=== PATIENT | female | born 1960 | race Two or more races ===

== ENCOUNTER 2023-07-25 18:20 | Emergency (ER) | payer MEDICARE, OTHER ==
[~2023-07-25] VITALS: Ht 149.9 cm; Wt 98.4 kg
[2023-07-25 18:32] VITALS: BP 138/81; TEMP 98.6; O2SAT 97
[2023-07-25] MEDS ORDERED: MORPHINE SULFATE INJ 4 MG/ML DISP.SYRIN ONE (18:58)
[2023-07-25] MEDS: MORPHINE SULFATE INJ 2 MG/ML DISP.SYRIN IV ONE (19:14)
[2023-07-25 19:36] LABS: EOSINOPHILS # (AUTO) 1.4 K/uL (0.0-0.7); EOSINOPHILS % (AUTO) 12.6 % (0.0-6.0); HEMATOCRIT 38 % (33-45); HEMOGLOBIN 11.8 g/dL (11.5-14.8); LYMPHOCYTES # (AUTO) 0.1 K/uL (0.8-4.8); LYMPHOCYTES % (AUTO) 1.2 % (20.0-44.0); MEAN CORPUSCULAR HEMOGLOBIN 24 PG (26.0-33.0); MEAN CORPUSCULAR HGB CONC 31 g/dl (31.0-36.0); MEAN CORPUSCULAR VOLUME 78 fL (82-100); MONOCYTES # (AUTO) 0.2 K/uL (0.1-1.30); MONOCYTES % (AUTO) 1.8 % (2.0-12.0); NEUTROPHILS # (AUTO) 9.7 K/uL (1.8-8.9); NEUTROPHILS % (AUTO) 84.4 % (43.0-81.0); PLATELET COUNT (AUTO) 317 K/uL (150-450); RED BLOOD CELL COUNT(AUTO) 4.83 MIL/uL (4.0-5.2); RED CELL DISTRIBUTION WIDTH 17.6 % (11.5-15.0); WHITE BLOOD COUNT (AUTO) 11.4 K/uL (4.3-11.0)
[2023-07-25 20:06] LABS: POTASSIUM 4.2 mmol/L (3.5-5.1)
[2023-07-25 20:12] LABS: INR 1.06 (0.91-1.10); PARTIAL THROMBOPLASTIN TIME 32.9 SEC (24.3-34.3); PROTHROMBIN TIME 11.2 SECS (9.2-11.1)
[2023-07-25] MEDS ORDERED: TRAM-351 PO (22:00)
== END 2023-07-25 23:04 ==
LOC: ER 18:39
DX: I89.0 Lymphedema, not elsewhere classified (principal); I10 Essential (primary) hypertension; J44.9 Chronic obstructive pulmonary disease, unspecified; E11.9 Type 2 diabetes mellitus without complications; Z85.3 Personal history of malignant neoplasm of breast; Z87.39 Personal history of other diseases of the musculoskeletal system and connective tissue; Z86.73 Personal history of transient ischemic attack (TIA), and cerebral infarction without residual deficits
CPT/HCPCS: 99285; 96374; 93971; 85025; 80048; 36415; 85730; J2270

== ENCOUNTER 2024-01-28 22:45 | Inpatient (IN) | payer MEDICARE, OTHER ==
[~2024-01-28] VITALS: Ht 149.9 cm; Wt 95.3 kg
[~2024-01-28 22:45] MED LIST: TRAM-351 PO
[2024-01-28] MEDS ORDERED: ONDANSETRON HCL/PF 4 MG/2 ML VIAL ONE (23:34)
[2024-01-28] MEDS ORDERED: KETOROLAC TROMETHAMINE INJ 30 MG/ML VIAL ONE (23:35)
[2024-01-28] MEDS: ONDANSETRON HCL/PF 4 MG/2 ML VIAL IVP ONE (23:45)
[2024-01-28] MEDS: IV NS 0.9% 500 ML BAG IV ONE (23:45)
[2024-01-28] MEDS: KETOROLAC TROMETHAMINE INJ 30 MG/ML VIAL IV ONE (23:45)
[2024-01-29 00:03] LABS: BASOPHILS # (AUTO) 0.1 K/uL (0.0-0.2); BASOPHILS % (AUTO) 0.9 % (0.0-2.0); EOSINOPHILS # (AUTO) 0.1 K/uL (0.0-0.7); EOSINOPHILS % (AUTO) 1.2 % (0.0-6.0); HEMATOCRIT 39 % (33-45); HEMOGLOBIN 12.5 g/dL (11.5-14.8); LYMPHOCYTES # (AUTO) 3.6 K/uL (0.8-4.8); LYMPHOCYTES % (AUTO) 44.1 % (20.0-44.0); MEAN CORPUSCULAR HEMOGLOBIN 26 PG (26.0-33.0); MEAN CORPUSCULAR HGB CONC 32 g/dl (31.0-36.0); MEAN CORPUSCULAR VOLUME 81 fL (82-100); MONOCYTES # (AUTO) 0.6 K/uL (0.1-1.30); MONOCYTES % (AUTO) 7.7 % (2.0-12.0); NEUTROPHILS # (AUTO) 3.8 K/uL (1.8-8.9); NEUTROPHILS % (AUTO) 46.1 % (43.0-81.0); PLATELET COUNT (AUTO) 320 K/uL (150-450); RED CELL DISTRIBUTION WIDTH 15.7 % (11.5-15.0); WHITE BLOOD COUNT (AUTO) 8.2 K/uL (4.3-11.0)
[2024-01-29 00:10] LABS: CALCIUM, SERUM 8.8 mg/dL (8.5-10.1); CREATININE 0.8 mg/dL (0.6-1.3); POTASSIUM 3.9 mmol/L (3.5-5.1)
[2024-01-29 00:16] LABS: ALBUMIN 3.4 g/dL (3.4-5.0); BILIRUBIN,DIRECT 0.1 mg/dL (0.0-0.2); BILIRUBIN,TOTAL 0.2 mg/dL (0.2-1.0); TOTAL PROTEIN, SERUM 7.1 g/dL (6.4-8.2)
[2024-01-29 01:00] LABS: APPEARANCE,URINE SLIGHTLY CLOUDY (CLEAR); BILIRUBIN,URINE NEGATIVE (NEGATIVE); BLOOD, URINE NEGATIVE Ery/uL (NEGATIVE); COLOR,URINE YELLOW (YELLOW); KETONES,URINE NEGATIVE (NEGATIVE); LEUKOCYTE ESTERASE ,URINE 2+ (NEGATIVE); NITRITE, URINE POSITIVE (NEGATIVE); PROTEIN,URINE TRACE mg/dl (NEGATIVE); UGLUCOSE NEGATIVE (NEGATIVE)
[2024-01-29 01:07] LABS: INR 1.1 (0.91-1.10); PARTIAL THROMBOPLASTIN TIME 25.1 SEC (24.3-34.3); PROTHROMBIN TIME 11.6 SECS (9.2-11.1)
[2024-01-29 01:29] LABS: RBC,URINE 0-2 /HPF (0-2)
[2024-01-29 01:30] LABS: ADD URINE CULTURE YES; BACTERIA,URINE Many /HPF (None Seen); WBC,URINE 21-50 /HPF (0-3)
[2024-01-29 01:31] LABS: MUCUS,URINE Moderate /LPF (None Seen)
[2024-01-29] MEDS ORDERED: CEFTRIAXONE 1GM BAG (ER ONLY) 50 ML IV ONE (02:10)
[2024-01-29] MEDS: CEFTRIAXONE 1GM BAG (ER ONLY) 1 GM/50 ML PIGGYBACK IV ONE (02:17)
[2024-01-29] MEDS ORDERED: Z GUARD REMEDY 4 OZ OINT TP PRN (02:30)
[2024-01-29] MEDS ORDERED: DEXTROSE 50%-WATER 50 ML DISP.SYRIN IV PRN (02:30)
[2024-01-29] MEDS ORDERED: MAG HYDROX/AL HYDROX/SIMETH 30 ML UDC PO PRN (02:30)
[2024-01-29] MEDS ORDERED: MAGNESIUM HYDROXIDE 30 ML UDC PO PRN (02:30)
[2024-01-29] MEDS ORDERED: ONDANSETRON HCL/PF 4 MG/2 ML VIAL IVP PRN (02:30)
[2024-01-29 04:00] VITALS: BP 102/84; TEMP 98; O2SAT 98
[2024-01-29] MEDS: BLOOD SUGAR DIAGNOSTIC 1 EACH STRIP IN SCH ×2 (07:44→12:11)
[2024-01-29] MEDS: INSULIN REGULAR, HUMAN 100 UNIT/ML 3 ML VIAL SQ PRN (07:45)
[2024-01-29] MEDS ORDERED: BLOO-374 IN (10:11)
[2024-01-29] MEDS ORDERED: ANAS1TAB50 PO (10:11)
[2024-01-29] MEDS ORDERED: APIX2.5T PO (10:11)
[2024-01-29] MEDS ORDERED: GABA300C PO (10:11)
[2024-01-29] MEDS ORDERED: PRAM0.129 PO (10:11)
[2024-01-29] MEDS ORDERED: AMLO-212 PO (10:11)
[2024-01-29] MEDS ORDERED: DIVA-78 PO (10:11)
[2024-01-29] MEDS ORDERED: LOSA50TA39 PO (10:11)
[2024-01-29] MEDS ORDERED: ACET-73 PO (10:11)
[2024-01-29] MEDS ORDERED: LORA10TA7 PO (10:11)
[2024-01-29] MEDS ORDERED: FAMO40TA7 PO (10:11)
[2024-01-29] MEDS ORDERED: QUET100T PO (10:11)
[2024-01-29] MEDS ORDERED: PHEN-894 PO (10:11)
[2024-01-29] MEDS ORDERED: METH1TAB69 PO (10:11)
[2024-01-29] MEDS ORDERED: ALBU2.5V38 IH (10:11)
[2024-01-29] MEDS ORDERED: SEMA1PEN SQ (10:11)
[2024-01-29] MEDS ORDERED: POLY17PO4 PO (10:11)
[2024-01-29] MEDS ORDERED: TRAM50TA2 PO (10:11)
[2024-01-29] MEDS ORDERED: SENN-261 PO (10:11)
[2024-01-29] MEDS ORDERED: METF500T PO (10:11)
[2024-01-29] MEDS ORDERED: ATOR80TA PO (10:11)
[2024-01-29] MEDS ORDERED: METO25TA4 PO (10:11)
[2024-01-29] MEDS ORDERED: TRAZ-252 PO (10:11)
[2024-01-29] MEDS ORDERED: CHOL200059 PO (10:11)
[2024-01-29] MEDS ORDERED: FERR325T24 PO (10:11)
[2024-01-29] MEDS ORDERED: Medication Not On Formulary EA (Methenamine Hippurate 1 GM) PO SCH (10:30)
[2024-01-29] MEDS ORDERED: POLYETHYLENE GLYCOL 3350 17 GM POWD.PACK PO PRN (10:30)
[2024-01-29] MEDS ORDERED: Medication Not On Formulary EA (Semaglutide (Ozempic) 1 MG) SQ SCH (10:30)
[2024-01-29] MEDS: METOPROLOL SUCCINATE 25 MG TAB.SR.24H PO SCH (11:16)
[2024-01-29] MEDS: METFORMIN 500 MG TABLET PO SCH (11:17)
[2024-01-29] MEDS: LOSARTAN POTASSIUM 50 MG TABLET PO SCH (11:17)
[2024-01-29] MEDS: APIXABAN 2.5 MG TABLET PO SCH (11:23)
[2024-01-29] MEDS: CEFTRIAXONE 1 G in IV D5W 50 ML IV SCH (11:42)
[2024-01-29 12:00] VITALS: BP 130/70; TEMP 98.6; O2SAT 99
[2024-01-29] MEDS: GABAPENTIN 300 MG CAPSULE PO SCH (12:10)
[2024-01-29] MEDS: TRAMADOL HCL 50 MG TABLET PO SCH (16:30)
[2024-01-29] MEDS: ACETAMINOPHEN 325 MG TABLET PO PRN (19:08)
[2024-01-29 20:00] VITALS: BP 143/71; TEMP 98.6; O2SAT 99
[2024-01-29] MEDS: DIVALPROEX SODIUM 500 MG TABLET.DR PO SCH (21:18)
[2024-01-29] MEDS: PRAMIPEXOLE DI-HCL 0.25 MG TABLET PO SCH (21:19)
[2024-01-29] MEDS: FAMOTIDINE (20 MG) 20 MG TABLET PO SCH (21:19)
[2024-01-29] MEDS: SENNOSIDES 8.6 MG TABLET PO SCH (21:19)
[2024-01-29] MEDS: QUETIAPINE FUMARATE 100 MG TABLET PO SCH (21:20)
[2024-01-30 04:00] VITALS: BP 132/69; TEMP 98.1; O2SAT 99
[2024-01-30 06:31] LABS: BASOPHILS % (AUTO) 0.6 % (0.0-2.0); EOSINOPHILS # (AUTO) 0.1 K/uL (0.0-0.7); EOSINOPHILS % (AUTO) 1.7 % (0.0-6.0); HEMATOCRIT 39 % (33-45); HEMOGLOBIN 12.4 g/dL (11.5-14.8); LYMPHOCYTES # (AUTO) 3.6 K/uL (0.8-4.8); LYMPHOCYTES % (AUTO) 51.6 % (20.0-44.0); MEAN CORPUSCULAR HEMOGLOBIN 26 PG (26.0-33.0); MEAN CORPUSCULAR HGB CONC 32 g/dl (31.0-36.0); MEAN CORPUSCULAR VOLUME 81 fL (82-100); MONOCYTES # (AUTO) 0.6 K/uL (0.1-1.30); NEUTROPHILS # (AUTO) 2.6 K/uL (1.8-8.9); NEUTROPHILS % (AUTO) 38.1 % (43.0-81.0); PLATELET COUNT (AUTO) 319 K/uL (150-450); RED BLOOD CELL COUNT(AUTO) 4.79 MIL/uL (4.0-5.2); RED CELL DISTRIBUTION WIDTH 15.5 % (11.5-15.0); WHITE BLOOD COUNT (AUTO) 6.9 K/uL (4.3-11.0)
[2024-01-30 06:38] LABS: CALCIUM, SERUM 9.3 mg/dL (8.5-10.1); CREATININE 0.9 mg/dL (0.6-1.3); PHOSPHORUS 4.6 mg/dL (2.5-4.9); POTASSIUM 4.2 mmol/L (3.5-5.1)
[2024-01-30] MEDS: ANASTROZOLE 1 MG TABLET PO SCH (09:37)
[2024-01-30] MEDS: ATORVASTATIN 40 MG TABLET PO SCH (09:39)
[2024-01-30] MEDS: AMLODIPINE BESYLATE 5 MG TABLET PO SCH (09:40)
[2024-01-30] MEDS: CHOLECALCIFEROL 1,000 UNIT TABLET (VIT D3) PO SCH (09:40)
[2024-01-30 12:00] VITALS: BP 128/64; TEMP 98.6; O2SAT 99
[2024-01-30 20:00] VITALS: BP 150/80; TEMP 98.1; O2SAT 99
[2024-01-31 04:00] VITALS: BP 145/84; TEMP 97.9; O2SAT 100
[2024-01-31 08:00] VITALS: BP 139/72; TEMP 98.6; O2SAT 95
[2024-01-31] MEDS: FERROUS SULFATE (325 MG) 325 MG/TAB TABLET PO SCH (08:51)
[2024-01-31 10:03] LABS: BASOPHILS # (AUTO) 0.1 K/uL (0.0-0.2); BASOPHILS % (AUTO) 0.8 % (0.0-2.0); EOSINOPHILS # (AUTO) 0.1 K/uL (0.0-0.7); EOSINOPHILS % (AUTO) 1.3 % (0.0-6.0); HEMATOCRIT 40 % (33-45); LYMPHOCYTES # (AUTO) 2.5 K/uL (0.8-4.8); LYMPHOCYTES % (AUTO) 32.9 % (20.0-44.0); MEAN CORPUSCULAR HEMOGLOBIN 26 PG (26.0-33.0); MEAN CORPUSCULAR HGB CONC 32 g/dl (31.0-36.0); MEAN CORPUSCULAR VOLUME 80 fL (82-100); MONOCYTES # (AUTO) 0.5 K/uL (0.1-1.30); NEUTROPHILS # (AUTO) 4.4 K/uL (1.8-8.9); PLATELET COUNT (AUTO) 317 K/uL (150-450); RED BLOOD CELL COUNT(AUTO) 5.02 MIL/uL (4.0-5.2); RED CELL DISTRIBUTION WIDTH 15.6 % (11.5-15.0); WHITE BLOOD COUNT (AUTO) 7.6 K/uL (4.3-11.0)
[2024-01-31 10:12] LABS: CALCIUM, SERUM 9.6 mg/dL (8.5-10.1); CREATININE 0.9 mg/dL (0.6-1.3); POTASSIUM 3.8 mmol/L (3.5-5.1)
[2024-01-31 16:00] VITALS: BP 138/79; TEMP 98.2; O2SAT 97
[2024-01-31 20:00] VITALS: BP 135/58; TEMP 97.8; O2SAT 97
[2024-02-01 04:56] VITALS: BP 119/72; TEMP 98.1; O2SAT 97
[2024-02-01 07:29] LABS: BASOPHILS % (AUTO) 0.6 % (0.0-2.0); EOSINOPHILS # (AUTO) 0.1 K/uL (0.0-0.7); EOSINOPHILS % (AUTO) 1.4 % (0.0-6.0); HEMATOCRIT 41 % (33-45); LYMPHOCYTES # (AUTO) 3.2 K/uL (0.8-4.8); LYMPHOCYTES % (AUTO) 42.1 % (20.0-44.0); MEAN CORPUSCULAR HEMOGLOBIN 26 PG (26.0-33.0); MEAN CORPUSCULAR HGB CONC 32 g/dl (31.0-36.0); MEAN CORPUSCULAR VOLUME 80 fL (82-100); MONOCYTES # (AUTO) 0.6 K/uL (0.1-1.30); MONOCYTES % (AUTO) 8.2 % (2.0-12.0); NEUTROPHILS # (AUTO) 3.6 K/uL (1.8-8.9); NEUTROPHILS % (AUTO) 47.7 % (43.0-81.0); PLATELET COUNT (AUTO) 305 K/uL (150-450); RED BLOOD CELL COUNT(AUTO) 5.08 MIL/uL (4.0-5.2); RED CELL DISTRIBUTION WIDTH 15.2 % (11.5-15.0); WHITE BLOOD COUNT (AUTO) 7.5 K/uL (4.3-11.0)
[2024-02-01 09:00] LABS: CALCIUM, SERUM 9.8 mg/dL (8.5-10.1); CREATININE 0.9 mg/dL (0.6-1.3); POTASSIUM 4.3 mmol/L (3.5-5.1)
[2024-02-01 09:19] VITALS: BP 130/80; TEMP 98.1; O2SAT 99
[2024-02-01 16:10] VITALS: BP 130/79; TEMP 98.2; O2SAT 97
[2024-02-01 20:00] VITALS: BP 119/86; TEMP 98.6; O2SAT 100
[2024-02-01] MEDS: TRAZODONE 50 MG TABLET PO PRN (23:01)
[2024-02-01] MEDS: LORATADINE 10 MG TABLET PO PRN (23:01)
[2024-02-02] MEDS ORDERED: MORPHINE SULFATE 8 MG/ML VIAL IM/IV ONE (00:30)
[2024-02-02] MEDS: MORPHINE SULFATE INJ 4 MG/ML DISP.SYRIN IV ONE (02:03)
[2024-02-02 04:00] VITALS: BP 115/79; TEMP 98.2; O2SAT 100
[2024-02-02] MEDS ORDERED: NITR100C6 PO (10:25)
[2024-02-02 10:38] VITALS: BP 138/76
== END 2024-02-02 15:17 | DRG 690 ==
LOC: ER 22:57 → MEDSG1 01-29 02:35
PROVIDERS: ADMIT Nurse Practitioner Family; ATTEND Nurse Practitioner Family
DX: N39.0 Urinary tract infection, site not specified (principal); Z68.41 Body mass index [BMI] 40.0-44.9, adult; I10 Essential (primary) hypertension; D64.9 Anemia, unspecified; E11.9 Type 2 diabetes mellitus without complications; E66.9 Obesity, unspecified; E78.5 Hyperlipidemia, unspecified; F39 Unspecified mood [affective] disorder; K21.9 Gastro-esophageal reflux disease without esophagitis; Z85.3 Personal history of malignant neoplasm of breast; B96.20 Unspecified Escherichia coli [E. coli] as the cause of diseases classified elsewhere; Z79.84 Long term (current) use of oral hypoglycemic drugs; Z99.3 Dependence on wheelchair; Z86.73 Personal history of transient ischemic attack (TIA), and cerebral infarction without residual deficits
CPT/HCPCS: 36415; 76856-TC; 80048-TC; 80076-TC; 81001; 82962-TC; 83690-TC; 83735-TC; 84100-TC; 85025-TC; 85730-TC; 87081-TC; 87086-TC; 97110-TC; 97112-TC; 97116-TC; 97530-TC; A4223; G0378; J0696; J1815; J1885; J2270; J2405; J7030; J7050; J7060

== ENCOUNTER 2024-03-10 19:09 | Emergency (ER) | payer MEDICARE, OTHER ==
[~2024-03-10] VITALS: Ht 149.9 cm; Wt 104.3 kg
[~2024-03-10 19:09] MED LIST changes: +ACET-73 PO; +ALBU2.5V38 IH; +AMLO-212 PO; +ANAS1TAB50 PO; +APIX2.5T PO; +ATOR80TA PO; +BLOO-374 IN; +CHOL200059 PO; +DIVA-78 PO; +FAMO40TA7 PO; +FERR325T24 PO; +GABA300C PO; +LORA10TA7 PO; +LOSA50TA39 PO; +METF500T PO; +METH1TAB69 PO; +METO25TA4 PO; +NITR100C6 PO; +PHEN-894 PO; +POLY17PO4 PO; +PRAM0.129 PO; +QUET100T PO; +SEMA1PEN SQ; +SENN-261 PO; -TRAM-351 PO; +TRAM50TA2 PO; +TRAZ-252 PO
[2024-03-10] MEDS ORDERED: MORPHINE SULFATE INJ 4 MG/ML DISP.SYRIN ONE (20:02)
[2024-03-10] MEDS ORDERED: PANTOPRAZOLE 40 MG VIAL ONE (20:02)
[2024-03-10] MEDS ORDERED: ONDANSETRON HCL/PF 4 MG/2 ML VIAL ONE (20:02)
[2024-03-10] MEDS: MORPHINE SULFATE INJ 2 MG/ML DISP.SYRIN IV ONE (20:07)
[2024-03-10] MEDS: ONDANSETRON HCL/PF 4 MG/2 ML VIAL IVP ONE (20:07)
[2024-03-10] MEDS: PANTOPRAZOLE 40 MG VIAL IV ONE (20:07)
[2024-03-10 20:13] LABS: BASOPHILS % (AUTO) 0.5 % (0.0-2.0); EOSINOPHILS # (AUTO) 0.1 K/uL (0.0-0.7); EOSINOPHILS % (AUTO) 1.4 % (0.0-6.0); HEMATOCRIT 38 % (33-45); HEMOGLOBIN 12.5 g/dL (11.5-14.8); LYMPHOCYTES # (AUTO) 3.9 K/uL (0.8-4.8); LYMPHOCYTES % (AUTO) 49.2 % (20.0-44.0); MEAN CORPUSCULAR HEMOGLOBIN 26 PG (26.0-33.0); MEAN CORPUSCULAR HGB CONC 33 g/dl (31.0-36.0); MEAN CORPUSCULAR VOLUME 81 fL (82-100); MONOCYTES # (AUTO) 0.7 K/uL (0.1-1.30); MONOCYTES % (AUTO) 8.3 % (2.0-12.0); NEUTROPHILS # (AUTO) 3.2 K/uL (1.8-8.9); NEUTROPHILS % (AUTO) 40.6 % (43.0-81.0); PLATELET COUNT (AUTO) 300 K/uL (150-450); RED BLOOD CELL COUNT(AUTO) 4.73 MIL/uL (4.0-5.2); RED CELL DISTRIBUTION WIDTH 16.2 % (11.5-15.0)
[2024-03-10 20:33] LABS: CALCIUM, SERUM 9.3 mg/dL (8.5-10.1); CREATININE 0.9 mg/dL (0.6-1.3); POTASSIUM 4.1 mmol/L (3.5-5.1)
[2024-03-10 20:39] LABS: ALBUMIN 3.6 g/dL (3.4-5.0); BILIRUBIN,DIRECT 0.1 mg/dL (0.0-0.2); BILIRUBIN,TOTAL 0.1 mg/dL (0.2-1.0); TOTAL PROTEIN, SERUM 7.4 g/dL (6.4-8.2)
[2024-03-10 23:08] VITALS: BP 129/98; TEMP 98; O2SAT 97
== END 2024-03-10 23:09 ==
LOC: ER 19:38
DX: G89.29 Other chronic pain (principal); M54.50 Low back pain, unspecified; R10.9 Unspecified abdominal pain; E11.9 Type 2 diabetes mellitus without complications; E78.5 Hyperlipidemia, unspecified; I10 Essential (primary) hypertension; J44.9 Chronic obstructive pulmonary disease, unspecified; Z79.01 Long term (current) use of anticoagulants; Z79.811 Long term (current) use of aromatase inhibitors; Z79.84 Long term (current) use of oral hypoglycemic drugs; Z79.899 Other long term (current) drug therapy; Z85.3 Personal history of malignant neoplasm of breast; Z86.73 Personal history of transient ischemic attack (TIA), and cerebral infarction without residual deficits
CPT/HCPCS: 99285; 74176; 96374; 96375; 93005; 85025; 80048; 83690; 80076; 36415; J2270; J2405; J2470

== ENCOUNTER 2024-11-18 16:12 | Emergency (ER) | payer MEDICARE, OTHER ==
[~2024-11-18] VITALS: Ht 152.4 cm; Wt 97.5 kg
[2024-11-18 17:26] VITALS: BP 116/70; TEMP 98.1; O2SAT 96
== END 2024-11-18 17:34 ==
LOC: ER 16:17
DX: L98.9 Disorder of the skin and subcutaneous tissue, unspecified (principal); I10 Essential (primary) hypertension; E11.9 Type 2 diabetes mellitus without complications; J44.9 Chronic obstructive pulmonary disease, unspecified; Z79.01 Long term (current) use of anticoagulants; Z79.811 Long term (current) use of aromatase inhibitors; Z79.84 Long term (current) use of oral hypoglycemic drugs; Z79.899 Other long term (current) drug therapy; Z85.3 Personal history of malignant neoplasm of breast; Z86.73 Personal history of transient ischemic attack (TIA), and cerebral infarction without residual deficits

== ENCOUNTER 2024-12-01 21:16 | Emergency (ER) | payer MEDICARE, OTHER ==
[~2024-12-01] VITALS: Ht 149.9 cm; Wt 107.0 kg
[2024-12-01 22:49] LABS: PLATELET COUNT (AUTO) 293 K/uL (150-450); RED BLOOD CELL COUNT(AUTO) 4.45 MIL/uL (4.0-5.2); RED CELL DISTRIBUTION WIDTH 15.4 % (11.5-15.0); WHITE BLOOD COUNT (AUTO) 8.9 K/uL (4.3-11.0)
[2024-12-01 22:59] LABS: CALCIUM, SERUM 9.3 mg/dL (8.5-10.1); CREATININE 1.0 mg/dL (0.6-1.3); INR 1.03 (0.91-1.10); SODIUM SERUM 142 mmol/L (136-145); UREA NITROGEN, BLOOD 12 mg/dL (7-18)
[2024-12-01 23:10] LABS: ALCOHOL, BLOOD < 3 mg/dL (0-10); ASPARTATE AMINOTRANSFERASE 9 U/L (15-37); NT-PRO BNP 41 pg/mL (0-125); TOTAL PROTEIN, SERUM 6.3 g/dL (6.4-8.2)
[2024-12-02 00:02] LABS: APPEARANCE,URINE CLEAR (CLEAR); BLOOD, URINE 3+ Ery/uL (NEGATIVE); LEUKOCYTE ESTERASE ,URINE 1+ (NEGATIVE); NITRITE, URINE NEGATIVE (NEGATIVE); UGLUCOSE NEGATIVE (NEGATIVE)
[2024-12-02 00:13] LABS: AMPHETAMINE, URINE NEGATIVE (NEGATIVE); BARBITURATE, URINE NEGATIVE (NEGATIVE); BENZODIAZEPINE, URINE NEGATIVE (NEGATIVE); CANNABINOID, URINE NEGATIVE (NEGATIVE); COCCAINE, URINE NEGATIVE (NEGATIVE); OPIATE, URINE NEGATIVE (NEGATIVE)
[2024-12-02 00:19] LABS: ADD URINE CULTURE YES; SQUAMOUS EPITHELIAL CELL,UR Moderate /HPF (None Seen)
[2024-12-02 05:12] VITALS: BP 125/64; TEMP 98.3; O2SAT 98
== END 2024-12-02 05:12 ==
LOC: ER 21:19
DX: S09.8XXA Other specified injuries of head, initial encounter (principal); T14.8XXA Other injury of unspecified body region, initial encounter; E11.9 Type 2 diabetes mellitus without complications; I10 Essential (primary) hypertension; J44.9 Chronic obstructive pulmonary disease, unspecified; M79.672 Pain in left foot; Z79.84 Long term (current) use of oral hypoglycemic drugs; Z79.899 Other long term (current) drug therapy; Z85.3 Personal history of malignant neoplasm of breast; Z86.73 Personal history of transient ischemic attack (TIA), and cerebral infarction without residual deficits; Z79.01 Long term (current) use of anticoagulants; Z87.39 Personal history of other diseases of the musculoskeletal system and connective tissue; W05.0XXA Fall from non-moving wheelchair, initial encounter; Y93.89 Activity, other specified; Y92.89 Other specified places as the place of occurrence of the external cause; Y99.8 Other external cause status
CPT/HCPCS: 36415; 70450-TC; 71045-TC; 73610-TC; 73630-TC; 80053-TC; 81001; 83880; 84484-TC; 85025-TC; 85610-TC; 85730-TC; 87086-TC; G0480

== ENCOUNTER 2025-01-18 19:45 | Emergency (ER) | payer MEDICARE, OTHER ==
[~2025-01-18] VITALS: Ht 149.9 cm; Wt 98.0 kg
[2025-01-18 20:53] LABS: PLATELET COUNT (AUTO) 318 K/uL (150-450); RED BLOOD CELL COUNT(AUTO) 4.53 MIL/uL (4.0-5.2); RED CELL DISTRIBUTION WIDTH 15.6 % (11.5-15.0); WHITE BLOOD COUNT (AUTO) 8.2 K/uL (4.3-11.0)
[2025-01-18 21:00] LABS: CALCIUM, SERUM 8.9 mg/dL (8.5-10.1); CREATININE 1.0 mg/dL (0.6-1.3); SODIUM SERUM 145.0 mmol/L (136-145); UREA NITROGEN, BLOOD 11.0 mg/dL (7-18)
[2025-01-18 21:04] LABS: INR 1.06 (0.91-1.10)
[2025-01-18 21:37] LABS: APPEARANCE,URINE CLEAR (CLEAR); BLOOD, URINE 2+ Ery/uL (NEGATIVE); LEUKOCYTE ESTERASE ,URINE 3+ (NEGATIVE); NITRITE, URINE NEGATIVE (NEGATIVE); UGLUCOSE NEGATIVE (NEGATIVE)
[2025-01-18 21:50] LABS: ADD URINE CULTURE YES; SQUAMOUS EPITHELIAL CELL,UR Many /HPF (None Seen)
[2025-01-18] MEDS ORDERED: NITR100C6 PO (21:54)
[2025-01-18 22:44] VITALS: BP 110/90; TEMP 98.3; O2SAT 98
== END 2025-01-18 22:45 ==
LOC: ER 19:46
DX: N39.0 Urinary tract infection, site not specified (principal); I89.0 Lymphedema, not elsewhere classified; I10 Essential (primary) hypertension; E11.9 Type 2 diabetes mellitus without complications; G89.29 Other chronic pain; J44.9 Chronic obstructive pulmonary disease, unspecified; Z79.01 Long term (current) use of anticoagulants; Z79.811 Long term (current) use of aromatase inhibitors; Z79.84 Long term (current) use of oral hypoglycemic drugs; Z79.899 Other long term (current) drug therapy; Z85.3 Personal history of malignant neoplasm of breast; Z86.73 Personal history of transient ischemic attack (TIA), and cerebral infarction without residual deficits
CPT/HCPCS: 36415; 80048-TC; 81001; 85025-TC; 85730-TC; 87086-TC; 93971-TC

== ENCOUNTER 2025-02-08 13:12 | Inpatient (IN) | payer MEDICARE, OTHER ==
[~2025-02-08] VITALS: Ht 149.9 cm; Wt 94.8 kg
[2025-02-08] MEDS: IV NS 0.9% 1,000 ML BAG IV ONE (13:40)
[2025-02-08] MEDS: CEFEPIME 1 GM in IV D5W 50 ML IV ONE (13:40)
[2025-02-08 13:51] LABS: PLATELET COUNT (AUTO) 462 K/uL (150-450); RED BLOOD CELL COUNT(AUTO) 4.24 MIL/uL (4.0-5.2); RED CELL DISTRIBUTION WIDTH 15.6 % (11.5-15.0); WHITE BLOOD COUNT (AUTO) 11.1 K/uL (4.3-11.0)
[2025-02-08 14:01] LABS: CALCIUM, SERUM 8.9 mg/dL (8.5-10.1); CREATININE 1.2 mg/dL (0.6-1.3); SODIUM SERUM 141.0 mmol/L (136-145); UREA NITROGEN, BLOOD 21.0 mg/dL (7-18)
[2025-02-08 14:07] LABS: ASPARTATE AMINOTRANSFERASE 23.0 U/L (15-37); TOTAL PROTEIN, SERUM 7.1 g/dL (6.4-8.2)
[2025-02-08 14:08] LABS: INR 1.07 (0.91-1.10)
[2025-02-08] MEDS: VANCOMYCIN 1 GM in IV D5W 250 ML IV ONE (14:15)
[2025-02-08 14:26] LABS: LACTIC ACID 1.5 mmol/L (0.4-2.0)
[2025-02-08] MEDS ORDERED: NITR100C PO (14:41)
[2025-02-08] MEDS ORDERED: INSU100I26 SQ (14:41)
[2025-02-08] MEDS ORDERED: FLUT1BLS6 IH (14:41)
[2025-02-08] MEDS ORDERED: DIVA-76 PO (14:41)
[2025-02-08] MEDS ORDERED: MOUNJARO SQ (14:41)
[2025-02-08] MEDS ORDERED: ASCO-352 PO (14:41)
[2025-02-08] MEDS ORDERED: LEVO100T9 PO (14:41)
[2025-02-08] MEDS ORDERED: METO-357 PO (14:41)
[2025-02-08] MEDS ORDERED: TIZA-180 PO (14:41)
[2025-02-08] MEDS ORDERED: OMEP40CA21 PO (14:41)
[2025-02-08 16:19] LABS: APPEARANCE,URINE SLIGHTLY CLOUDY (CLEAR); BLOOD, URINE TRACE-INTA Ery/uL (NEGATIVE); LEUKOCYTE ESTERASE ,URINE 3+ (NEGATIVE); NITRITE, URINE NEGATIVE (NEGATIVE); UGLUCOSE NEGATIVE (NEGATIVE)
[2025-02-08] MEDS ORDERED: ACETAMINOPHEN 325 MG TABLET PO PRN (16:30)
[2025-02-08] MEDS ORDERED: MAGNESIUM HYDROXIDE 30 ML UDC PO PRN (16:30)
[2025-02-08] MEDS ORDERED: DOSING PER PHARMACY-VANCOMYCIN IV XX PRN (16:30)
[2025-02-08] MEDS ORDERED: DOSING PER PHARMACY-CEFEPIME IVPB XX PRN (16:30)
[2025-02-08] MEDS ORDERED: ENOXAPARIN SODIUM 40 MG/0.4 ML DISP.SYRIN SQ SCH (16:30)
[2025-02-08] MEDS ORDERED: MAG HYDROX/AL HYDROX/SIMETH 30 ML UDC PO PRN (16:30)
[2025-02-08] MEDS ORDERED: ONDANSETRON HCL/PF 4 MG/2 ML VIAL IVP PRN (16:30)
[2025-02-08] MEDS ORDERED: TRAMADOL HCL 50 MG TABLET PO PRN (17:00)
[2025-02-08] MEDS ORDERED: TRAZODONE 50 MG TABLET PO PRN (17:00)
[2025-02-08] MEDS ORDERED: ACETAMINOPHEN ES 500 MG TABLET PO PRN (17:00)
[2025-02-08] MEDS ORDERED: LORATADINE 10 MG TABLET PO PRN (17:00)
[2025-02-08] MEDS ORDERED: Medication Not On Formulary EA (Methenamine Hippurate 1 GM) PO SCH (17:00)
[2025-02-08 17:04] LABS: ADD URINE CULTURE YES
[2025-02-08] MEDS ORDERED: TIZANIDINE HCL 4 MG TABLET PO PRN (17:30)
[2025-02-08] MEDS: METFORMIN 500 MG TABLET PO SCH (17:50)
[2025-02-08] MEDS: LOSARTAN POTASSIUM 50 MG TABLET PO SCH (17:50)
[2025-02-08] MEDS: GABAPENTIN 300 MG CAPSULE PO SCH (17:50)
[2025-02-08] MEDS: ASCORBIC ACID 500 MG TABLET PO SCH (17:50)
[2025-02-08] MEDS: APIXABAN 2.5 MG TABLET PO SCH (17:51)
[2025-02-08] MEDS: BLOOD SUGAR DIAGNOSTIC 1 EACH STRIP IN SCH (18:28)
[2025-02-08] MEDS: VANCOMYCIN 500 MG in IV D5W 100ml IV ONE (21:24)
[2025-02-08] MEDS: IV NS 0.9% 1,000 ML IV PRN (21:25)
[2025-02-08] MEDS ORDERED: DIVALPROEX SODIUM 250 MG TABLET.DR PO SCH (22:00)
[2025-02-08] MEDS: INSULIN GLARGINE, 100 UNIT/ML CARTRIDGE SQ SCH (22:00)
[2025-02-08] MEDS: QUETIAPINE FUMARATE 100 MG TABLET PO SCH (22:47)
[2025-02-08] MEDS: ATORVASTATIN 40 MG TABLET PO SCH (22:47)
[2025-02-08] MEDS: PRAMIPEXOLE DI-HCL 0.25 MG TABLET PO SCH (22:47)
[2025-02-08] MEDS: SENNOSIDES 8.6 MG TABLET PO SCH (22:48)
[2025-02-08] MEDS: DIVALPROEX SODIUM 250 MG TABLET.DR PO SCH (22:48)
[2025-02-08] MEDS: DIVALPROEX SODIUM 500 MG TABLET.DR PO SCH (22:48)
[2025-02-09] MEDS: CEFEPIME 2 GM in IV D5W 100 ML IV SCH (01:54)
[2025-02-09 07:00] VITALS: BP 147/79; TEMP 98.2; O2SAT 97
[2025-02-09] MEDS: ANASTROZOLE 1 MG TABLET PO SCH (08:50)
[2025-02-09] MEDS: CHOLECALCIFEROL 1,000 UNIT TABLET (VIT D3) PO SCH (08:51)
[2025-02-09] MEDS: PANTOPRAZOLE 40 MG TABLET.DR PO SCH (08:51)
[2025-02-09] MEDS: LEVOTHYROXINE SODIUM 100 MCG TABLET PO SCH (08:51)
[2025-02-09] MEDS: METOPROLOL SUCCINATE 25 MG TAB.SR.24H PO SCH (08:52)
[2025-02-09] MEDS: METOPROLOL SUCCINATE 50 MG TAB.SR.24H PO SCH (08:52)
[2025-02-09 16:00] VITALS: BP 119/77; TEMP 99; O2SAT 96
[2025-02-09] MEDS: CLOTRIMAZOLE 1% 15 GM TUBE TP SCH (16:41)
[2025-02-09] MEDS: PROSOURCE / PROSTAT (PYXIS) 30 ML UDC PO SCH (16:42)
[2025-02-09] MEDS: VANCOMYCIN 1 GM in IV D5W 250ml IV SCH (17:05)
[2025-02-09] MEDS: ACETAMINOPHEN ES 500 MG TABLET PO PRN (17:55)
[2025-02-09 20:00] VITALS: BP 148/90; TEMP 98.8; O2SAT 96
[2025-02-10 08:12] LABS: CALCIUM, SERUM 8.9 mg/dL (8.5-10.1); CREATININE 0.8 mg/dL (0.6-1.3); SODIUM SERUM 143.0 mmol/L (136-145); UREA NITROGEN, BLOOD 9.0 mg/dL (7-18)
[2025-02-10] MEDS: FERROUS SULFATE (325 MG) 325 MG/TAB TABLET PO SCH (08:36)
[2025-02-10 08:44] VITALS: BP 146/86; TEMP 97.7; O2SAT 96
[2025-02-10 13:36] LABS: PLATELET COUNT (AUTO) 425 K/uL (150-450); RED BLOOD CELL COUNT(AUTO) 4.44 MIL/uL (4.0-5.2); RED CELL DISTRIBUTION WIDTH 15.4 % (11.5-15.0); WHITE BLOOD COUNT (AUTO) 12.1 K/uL (4.3-11.0)
[2025-02-10 17:36] VITALS: BP 138/69; TEMP 98.1; O2SAT 97
[2025-02-10 21:34] VITALS: BP 148/82; TEMP 98.4; O2SAT 98
[2025-02-11 06:10] LABS: PLATELET COUNT (AUTO) 430 K/uL (150-450); RED BLOOD CELL COUNT(AUTO) 4.13 MIL/uL (4.0-5.2); RED CELL DISTRIBUTION WIDTH 15.3 % (11.5-15.0); WHITE BLOOD COUNT (AUTO) 11.4 K/uL (4.3-11.0)
[2025-02-11 06:30] LABS: CALCIUM, SERUM 9.0 mg/dL (8.5-10.1); CREATININE 0.8 mg/dL (0.6-1.3); SODIUM SERUM 142.0 mmol/L (136-145); UREA NITROGEN, BLOOD 10.0 mg/dL (7-18)
[2025-02-11 07:00] VITALS: BP 143/94; TEMP 98.1; O2SAT 97
[2025-02-11] MEDS ORDERED: VANCOMYCIN 1 GM in IV D5W 250ml IV SCH (09:00)
[2025-02-11 10:12] LABS: PLATELET COUNT (AUTO) 438 K/uL (150-450); RED BLOOD CELL COUNT(AUTO) 4.20 MIL/uL (4.0-5.2); RED CELL DISTRIBUTION WIDTH 15.1 % (11.5-15.0); WHITE BLOOD COUNT (AUTO) 11.4 K/uL (4.3-11.0)
[2025-02-11 10:36] LABS: ASPARTATE AMINOTRANSFERASE 19.0 U/L (15-37); CALCIUM, SERUM 9.0 mg/dL (8.5-10.1); CREATININE 0.7 mg/dL (0.6-1.3); PHOSPHORUS 3.4 mg/dL (2.5-4.9); SODIUM SERUM 139.0 mmol/L (136-145); TOTAL PROTEIN, SERUM 7.0 g/dL (6.4-8.2); UREA NITROGEN, BLOOD 10.0 mg/dL (7-18)
[2025-02-11 10:38] LABS: LDL 26.0 mg/dL (0-99)
[2025-02-11] MEDS: P-EPHED SUL/LORATADINE (24H) 1 TAB.SR.24H PO SCH (11:06)
[2025-02-11] MEDS: POVIDONE-IODINE OINT 28.4 GM TUBE TP SCH (13:34)
[2025-02-11 20:00] VITALS: BP 136/80; TEMP 98.1; O2SAT 96
[2025-02-12 07:00] VITALS: BP 140/95; TEMP 98.6; O2SAT 100
[2025-02-12 07:53] LABS: CALCIUM, SERUM 8.8 mg/dL (8.5-10.1); CREATININE 0.8 mg/dL (0.6-1.3); SODIUM SERUM 144.0 mmol/L (136-145); UREA NITROGEN, BLOOD 12.0 mg/dL (7-18)
[2025-02-12 08:37] VITALS: BP 140/95
== END 2025-02-12 13:52 | DRG 603 ==
LOC: ER 13:15 → MED 16:17
PROVIDERS: ADMIT Nurse Practitioner Family; ATTEND Nurse Practitioner Acute Care
DX: L03.116 Cellulitis of left lower limb (principal); E44.1 Mild protein-calorie malnutrition; D68.59 Other primary thrombophilia; I69.354 Hemiplegia and hemiparesis following cerebral infarction affecting left non-dominant side; E88.09 Other disorders of plasma-protein metabolism, not elsewhere classified; F29 Unspecified psychosis not due to a substance or known physiological condition; Z79.01 Long term (current) use of anticoagulants; Z68.41 Body mass index [BMI] 40.0-44.9, adult; E11.621 Type 2 diabetes mellitus with foot ulcer; J44.9 Chronic obstructive pulmonary disease, unspecified; I10 Essential (primary) hypertension; E03.9 Hypothyroidism, unspecified; E86.0 Dehydration; L97.529 Non-pressure chronic ulcer of other part of left foot with unspecified severity; S93.402A Sprain of unspecified ligament of left ankle, initial encounter; Y92.9 Unspecified place or not applicable; V09.20XA Pedestrian injured in traffic accident involving unspecified motor vehicles, initial encounter; Z90.10 Acquired absence of unspecified breast and nipple; Z85.3 Personal history of malignant neoplasm of breast; I89.0 Lymphedema, not elsewhere classified; Z79.51 Long term (current) use of inhaled steroids; Z79.890 Hormone replacement therapy; Z79.4 Long term (current) use of insulin; Z79.84 Long term (current) use of oral hypoglycemic drugs; Z79.899 Other long term (current) drug therapy; E78.5 Hyperlipidemia, unspecified; B35.3 Tinea pedis; E66.01 Morbid (severe) obesity due to excess calories; Z87.440 Personal history of urinary (tract) infections; Z90.12 Acquired absence of left breast and nipple; Z74.09 Other reduced mobility; R79.89 Other specified abnormal findings of blood chemistry; K21.9 Gastro-esophageal reflux disease without esophagitis
CPT/HCPCS: 36415; 71045-TC; 73590-TC; 73630-TC; 80048-TC; 80061-TC; 80076-TC; 80202-TC; 81001; 82962-TC; 83605-TC; 83735-TC; 84100-TC; 85025-TC; 85730-TC; 87040-TC; 87081-TC; 87086-TC; 97112-TC; 97530-TC; A4223; G0378; J0692; J1815; J3373; J7030; J7060